=== PATIENT | female | born 1975 | race Caucasian/White ===

== ENCOUNTER 2017-08-06 11:15 | Emergency (ER) | payer MEDICARE, SELFPAY ==
[2017-08-06 11:17] VITALS: BP 124/93; PULSE 104; RESP 20; TEMP 36.9; O2SAT 100; BMI 21.4
[2017-08-06 12:36] LABS: Bedside Glucose 410 mg/dL (70-110)
[2017-08-06 13:16] VITALS: BP 128/89; PULSE 98; RESP 14; O2SAT 100
--- NOTE | 2017-08-06 13:42 | RAD_ITS ---
STUDY: X-RAY - RIGHT HAND REASON FOR EXAM: Female, 41 years old. Possible infection. TECHNIQUE: 3 view(s) of the hand. COMPARISON: None. FINDINGS: Normal radiocarpal articulation. Normal distal radioulnar joint. Normal visualized carpal bones. Normal carpal articulations Normal carpometacarpal articulation of the thumb. Normal second through fifth carpometacarpal joints. Normal metacarpi. Normal metacarpophalangeal joint of the thumb. Normal interphalangeal joint of the thumb. Normal proximal and distal phalanges of the thumb. Normal metacarpophalangeal joints of the second through fifth fingers. Normal proximal and distal interphalangeal joints of the second through fifth fingers. Normal phalanges of the second through fifth fingers. Dorsal soft tissue swelling. Tiny radiopacity is seen in the soft tissues overlying the ulnar aspect of the proximal portion of the fifth metacarpal. RAD/Hand Min 3 Views IMPRESSION: Soft tissue swelling. Questionable tiny radiopaque foreign bodies in the soft tissues overlying the ulnar aspect of the base of the fifth metacarpal. Electronically Signed: Brice Mann MD at 14:12 EST Tel [phone], Service support ,
[2017-08-06 14:09] LABS: Absolute Lymphocyte Count 2.19 X10^3/ul (0.83-4.51); Absolute Neutrophil Count 9.8 X10^3/uL (2.0-7.7); Basophil# 0.03 X10^3/uL; Basophil% 0.2 % (0-1); Eosinophils% 0.7 % (0-5); Hematocrit 40.1 % (37-47); Hemoglobin 13.2 g/dl (12.0-15.0); Lymphocyte # 2.19 X10^3/ul (4.0); Lymphocyte % 16.3 % (19-41); Mean Corp Hgb Conc 32.9 g/gl (32-36); Mean Corpuscular Hgb 29.7 pg (27.0-32.0); Mean Corpuscular Volume 90.1 fL (81-99); Mean Platelet Vol. 9.6 fl (6.2-12.0); Monocyte% 9.7 % (0-10); Neutrophil % 72.8 % (47-70); POSITIVE COUNT NO; POSITIVE DIFFERENTIAL NO; POSITIVE MORPHOLOGY NO; Platelet Count 376 K/mm3 (150-450); RBC Distribution Width CV 13.5 % (11.6-14.6); Red Blood Count 4.45 M/mm3 (4.2-5.4); White Blood Count 13.5 K/mm3 (4.4-11.0)
[2017-08-06 14:17] LABS: Alcohol, Blood (Medical)-Serum < 3.0 mg/dL
[2017-08-06 14:20] LABS: Lactic Acid 1.9 mmol/L (0.4-2.0)
[2017-08-06 14:23] LABS: ALB/GLOB Ratio 0.6 RATIO (0.9-2.4); AST(SGOT) 19 U/L (15-37); Alanine Aminotransfer ALT/SGPT 25 U/L (12-78); Albumin, Serum 3.2 g/dL (3.4-5.0); Alkaline Phosphatase 152 U/L (45-117); Anion Gap 10 (5-15); BUN 7 mg/dL (7-18); BUN/Creat Ratio 9.9 RATIO (10-20); Calcium,Total 8.9 mg/dL (8.5-10.1); Chloride 94 mmol/L (98-107); EST Glomerular Filtration Rate 97 mL/min (>60); Est Glom Filt Rate - Afr Amer 118 mL/min (>60); Estimated Creatinine Clearance 76.74 ml/min; Glucose 377 mg/dL (70-110); Potassium 3.5 mmol/L (3.5-5.1); Protein, Total 8.2 g/dL (6.4-8.2); Prothrombin Time (Protime)PT. 12.6 SECONDS (11.7-14.9); Sodium Level 132 mmol/L (136-145)
--- NOTE | 2017-08-06 14:54 | NURSING ---
pt requested pain medication. pt offered medication that was no an opiod. she then began to scream and swear at me. she started to tare at her iv site and tell me to remove it. i explained to the patient that if we remover her iv she would not be able to receive pain medications, insulin, or her antibiotics. iv was removed and catheter was in tacked. was informed about pt behavior and hospital resource officer was notified about her behavior and concern for patient safety. connor sung rn
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
--- NOTE | 2017-08-06 15:24 | ED.RN ---
THIS NURSE ATTEMPTED TO GIVE PT HER D/C INSTRUCTIONS AND PRESCRIPTIONS. PT STATES FUCK YOU. BOYFRIEND SPOKE WITH THIS NURSE. BOYFRIEND GIVEN THE D/C PAPERWORK AND INSTRUCTION ABOUT THE ANTIBIOTICS. PT REFUSING TO SIGN THE AMA PAPERWORK.
--- NOTE | 2017-08-06 15:26 | ED.RN ---
PT REMOVED HER OWN IV
== END 2017-08-06 15:26 | disposition home or self-care (01) ==
PROVIDERS: Emergency Provider Emergency Medicine
DX: L03.113 Cellulitis of right upper limb (principal); E11.65 Type 2 diabetes mellitus with hyperglycemia; Z91.14 Patient's other noncompliance with medication regimen; R23.4 Changes in skin texture; J44.9 Chronic obstructive pulmonary disease, unspecified; F41.9 Anxiety disorder, unspecified; F43.10 Post-traumatic stress disorder, unspecified; F32.9 Major depressive disorder, single episode, unspecified; Z79.4 Long term (current) use of insulin; Z72.0 Tobacco use; M79.89 Other specified soft tissue disorders
CPT/HCPCS: 73130; 80053; 80320; 82009; 82962; 83605; 84484; 85025; 85610; 85730; 87040; 99283; J7050; A4216; G0480

== ENCOUNTER 2017-09-05 01:50 | Inpatient (IN) | payer MEDICARE, SELFPAY ==
[2017-09-05] VITALS (33 sets, daily range): BP systolic 85–135; BP diastolic 56–88; PULSE 73–110; RESP 14–25; TEMP 36.4–37.4; O2SAT 94–100; BMI 24.6; BMI 23.3
[2017-09-05 02:01] LABS: Bedside Glucose > 500 mg/dL (70-110)
--- NOTE | 2017-09-05 02:09 | EKG12_ITS ---
Test Reason : ALTERED MENTAL STATU Blood Pressure : / mmHG Vent. Rate : 098 BPM Atrial Rate : 098 BPM P-R Int : 178 ms QRS Dur : 088 ms QT Int : 352 ms P-R-T Axes : 061 039 036 degrees QTc Int : 449 ms Normal sinus rhythm Normal ECG Confirmed by ENA DILLARD, AMARI ([id number]), editor map JOSUE CRAMER ([id number]) on 09/06/2017 10:35:36 AM Referred By: VINH Confirmed By:AMARI SUTHERLAND MD
--- NOTE | 2017-09-05 02:09 | RAD_ITS ---
STUDY: X-RAY CHEST REASON FOR EXAM: Female, 41 years old. Altered mental status and hyperglycemia. TECHNIQUE: Single AP portable view of the chest. COMPARISON: 07/08/2017 FINDINGS: The lungs are clear and expanded. There is no demonstrated pleural abnormality. Normal size heart. Normal mediastinum and noemi. Normal visualized pulmonary arteries. Normal visualized aortic arch and descending thoracic aorta. Normal visualized thoracic spine. Normal visualized ribs, clavicles, and shoulders. There is no demonstrated abnormality of the visualized soft tissue structures of the upper abdomen. RAD/Chest 1 View (Portable) IMPRESSION: Normal x-ray examination of the chest. Electronically Signed: Zackary Aguilar MD at 4:01 EST Tel , Service support ,
[2017-09-05 02:14] LABS: Bacteria 0 SEEN /hpf (None Seen); Mucous, Urine 0 SEEN /hpf (<or=2+); Red Blood Cells-Urine 0 SEEN /hpf (0-5)
[2017-09-05 02:15] LABS: Color, Urine Straw (Yellow); Glucose, Dipstick 1000 mg/dl (Normal); Ketone-Dipstick Negative (Negative); Leukocyte Esterase-Dipstick 25 /ul (Negative); Nitrite-Dipstick Negative (Negative); Occult Blood-Urine 250 /ul (Negative); Protein-Dipstick Negative (Negative); Specific Gravity, Urine 1.005 (1.002-1.030); Urine Bilirubin Dipstick Negative (Negative); Urine Clarity Clear (Clear); Urine Urobilinogen Normal (Normal)
[2017-09-05 02:21] LABS: Squamous Epithelial Cells - UA 0-5 SEEN /hpf (5-10); Vista UDS pH Range 6; White Blood Cells 0-5 SEEN /hpf (0-5)
[2017-09-05] MEDS: 0.9% Normal Saline 1,000 ML 999 ML IV ×2 (02:25→03:07)
[2017-09-05 02:26] LABS: Amphetamine Urine VISTA POSITIVE (<1000 ng/mL); Barbiturate Urine VISTA NEGATIVE (< 200 ng/mL); Benzodiazepine Urine VISTA NEGATIVE (< 200 ng/mL); Cocaine Urine VISTA NEGATIVE (< 300 ng/mL); Ecstacy Urine VISTA NEGATIVE (< 500 ng/mL); Methadone Urine VISTA NEGATIVE (< 300 ng/mL); PCP Urine VISTA NEGATIVE (< 25 ng/mL); THC Urine VISTA NEGATIVE (< 50 ng/mL)
[2017-09-05 02:28] LABS: Internal QC Validated? YES +Cl - CLEAR BKGD; Pregnancy, Urine Negative Negative
[2017-09-05 02:30] LABS: Absolute Lymphocyte Count 0.91 X10^3/ul (0.83-4.51); Basophil# 0.01 X10^3/uL; Basophil% 0.2 % (0-1); Hematocrit 50.8 % (37-47); Hemoglobin 13.4 g/dl (12.0-15.0); Lymphocyte # 0.91 X10^3/ul (4.0); Lymphocyte % 13.8 % (19-41); Mean Corp Hgb Conc 26.4 g/gl (32-36); Mean Corpuscular Hgb 29.9 pg (27.0-32.0); Mean Corpuscular Volume 113.4 fL (81-99); Mean Platelet Vol. 10.1 fl (6.2-12.0); Monocyte# 0.65 X10^3/uL; Monocyte% 9.8 % (0-10); Neutrophil # 5.01 X10^3/uL (2.7-7.7); Neutrophil % 75.9 % (47-70); POSITIVE COUNT NO; POSITIVE DIFFERENTIAL NO; POSITIVE MORPHOLOGY NO; Platelet Count 317 K/mm3 (150-450); RBC Distribution Width CV 14.6 % (11.6-14.6); RBC Distribution Width SD 60.5 fl (35.1-43.9); Red Blood Count 4.48 M/mm3 (4.2-5.4); White Blood Count 6.6 K/mm3 (4.4-11.0)
[2017-09-05 02:36] LABS: Blood Gas Specimen Type VEN; O2 Delivery Device Room Air; Time Given 227; VBG BASE EXCESS -10 mmol/L (-1.0-3.5); VBG Bicarbonate 16 mmol/L (22-26); VBG Oxygen Content 17 mmol/L (23-33); VBG PO2 83 mmHg (25-40); VBG SO2 95 % (50-70); VBG pCO2 34.2 mmHg (41-51); VBG pH 7.28 (7.32-7.42)
[2017-09-05 02:57] LABS: Anion Gap 20 (5-15); BUN 14 mg/dL (7-18); BUN/Creat Ratio 8.7 RATIO (10-20); Calcium,Total 9.1 mg/dL (8.5-10.1); Chloride 78 mmol/L (98-107); Creatinine, Serum 1.61 mg/dL (0.55-1.02); EST Glomerular Filtration Rate 38 mL/min (>60); Est Glom Filt Rate - Afr Amer 45 mL/min (>60); Estimated Creatinine Clearance 36.74 ml/min; Glucose 1894 mg/dL (74-106); Potassium 5.2 mmol/L (3.5-5.1); Sodium Level 113 mmol/L (136-145)
--- NOTE | 2017-09-05 02:58 | ED.RN ---
LAB CALLS WITH CRITICAL RESULT, BLOOD GLUCOSE 1,894, SODIUM 113, DR. JUSTICE MADE AWARE.
--- NOTE | 2017-09-05 03:06 | ED.RN ---
LANEY CARVER (FRIEND) [phone], CALL FOR DISCHARGE.
--- NOTE | 2017-09-05 03:17 | ED.VISSUMM ---
- ER Visit Summary Date of Service: 09/05/17 Chief Complaint: Blood sugar History of Present Illness: The patient is a 41 F type I diabetic with a history of medication noncompliance and prior IV drug abuse. She states her blood sugars been high for the past 1-2 days. She ran out of her insulin a couple of days ago as she never establish a primary care physician. She does complain of some abdominal pain diffuse all over pain and nausea and vomiting. Physical Examination: Afebrile respiratory rate 25 vitals otherwise unremarkable Moist mucous membranes Heart regular rate and rhythm Patient does have a systolic murmur Lungs are clear Abdomen soft Alert Patient somewhat agitated yelling that she needs to pee and that she is in pain. Test Results: EKG shows normal sinus rhythm at a rate of 98. CBC unremarkable. Chemistry notable for creatinine of 1.61 glucose of 1894 bicarb of 15.0 sodium of 113 with a chloride of 78. And gap of 20. ABG shows pH 7.28. UA unremarkable. negative. Acetone negative. Urine drug screen positive for amphetamine. On my review of chest x-ray her cardiac silhouette does appear larger than on previous images however this may be related to portable technique. Bedside ultrasound did not show appreciable pericardial effusion although is limited. Emergency Department Course and Treatment: Patient was treated with aggressive IV fluids. Blood was obtained off and a radial arterial stick. She has severely elevation of her glucose with negative serum acetone however she is acidotic with an elevated anion gap so I do believe this is more diabetic ketoacidosis rather than hyperosmolar hyperglycemic state. She was treated with IV insulin infusion. Her corrected sodium with her glucose taken into account is about 140. Patient discussed with hospitalist will be admitted to the ICU. Treatment Plan: [] Disposition: Admit Impression: Diabetic ketoacidosis Acute kidney injury This note was generated with [employer] dictation software. It may contain incorrect words, spelling, and punctuation that were not noted in review of the chart prior to signing ED Disposition - Plan for ED Patient: Chief Complaint: Hyperglycemia Referrals: Care Physician,No Primary [Primary Care Provider] -
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
--- NOTE | 2017-09-05 03:53 | ECHOD_ITS ---
Reason For Study: hypertension Procedure This was a 2D Doppler, Color Flow transthoracic echocardiogram. Exam performed portable in ICU/CCU. Left Ventricle Normal LV size. Left ventricular systolic function is normal. The estimated ejection fraction is 60 %. Transmitral and pulmonary venous doppler flow suggestive of impaired relaxation of left ventricle. No regional wall motion abnormalities noted. Right Ventricle Normal RV size. Normal systolic function. Atria Normal left atrium. Normal right atrium. Mitral Valve Normal mitral valve. Tricuspid Valve Normal tricuspid valve. Mild (1+) tricuspid valve insufficiency. Pulmonary artery systolic pressure is 37 mmHg. Pulmonic Valve Normal pulmonic valve. Great Vessels Normal aortic root. The pulmonary artery is normal size. Normal inferior vena cava. Pericardium/Pleural No pericardial effusion. MMode/2D Measurements & Calculations LVIDd: 3.9 cm IVSd: 1.0 cm Ao root diam: 2.4 cm LVIDs: 2.4 cm LVPWd: 0.83 cm LA dimension: 2.6 cm RVDd: 2.9 cm FS: 38.1 % LAV(MOD-bp): 35.8 ml LA A4 area: 13.6 cm2 RA A4 area: 8.5 cm2 LAV(MOD-bp) Indexed: 22.8 ml/m2 LAV(MOD-sp2): 32.2 ml LAV(MOD-sp4): 37.0 ml Doppler Measurements & Calculations MV E max nithin: 88.8 cm/sec Lat Peak E' Nithin: 18.8 cm/sec Med Peak E' Nithin: 10.3 cm/sec MV A max nithin: 81.5 cm/sec E/E' lat: 4.7 E/E' med: 8.6 MV E/A: 1.1 Ao V2 max: 139.3 cm/sec LV V1 max: 117.7 cm/sec PA V2 max: 131.4 cm/sec Ao max P.8 mmHg LV V1 max P.5 mmHg TR max nithin: 283.4 cm/sec TR max P.2 mmHg Interpretation Summary Normal LV size. Left ventricular systolic function is normal. The estimated ejection fraction is 60 %. Transmitral and pulmonary venous doppler flow suggestive of impaired relaxation of left ventricle Mild (1+) tricuspid valve insufficiency. Ordering Physician: Elisa Devlin Referring Physician: FERCHO PCP Performed By: Chloe Sosa, DANIAL, RVT
--- NOTE | 2017-09-05 04:10 | NURSING ---
Patient drowsy at this time and unable to answer all of the admission questions.
[2017-09-05 04:16] LABS: Bedside Glucose > 500 mg/dL (70-110)
[2017-09-05] MEDS: 0.9% Normal Saline 1,000 ML 250 ML IV ×2 (04:27→09:00)
[2017-09-05 04:28] LABS: Absolute Lymphocyte Count 0.78 X10^3/ul (0.83-4.51); Absolute Neutrophil Count 6.4 X10^3/uL (2.0-7.7); Basophil# 0.02 X10^3/uL; Basophil% 0.3 % (0-1); Hematocrit 42.4 % (37-47); Hemoglobin 13.9 g/dl (12.0-15.0); Lymphocyte # 0.78 X10^3/ul (4.0); Lymphocyte % 10.3 % (19-41); Mean Corp Hgb Conc 32.8 g/gl (32-36); Mean Corpuscular Volume 91.6 fL (81-99); Mean Platelet Vol. 9.9 fl (6.2-12.0); Monocyte# 0.34 X10^3/uL; Monocyte% 4.5 % (0-10); Neutrophil # 6.43 X10^3/uL (2.7-7.7); Neutrophil % 84.5 % (47-70); Platelet Count 331 K/mm3 (150-450); RBC Distribution Width CV 14.1 % (11.6-14.6); RBC Distribution Width SD 46.7 fl (35.1-43.9); Red Blood Count 4.63 M/mm3 (4.2-5.4); White Blood Count 7.6 K/mm3 (4.4-11.0)
[2017-09-05 04:40] LABS: POSITIVE COUNT NO; POSITIVE DIFFERENTIAL NO; POSITIVE MORPHOLOGY NO
[2017-09-05 04:50] LABS: Anion Gap 13 (5-15); BUN 13 mg/dL (7-18); BUN/Creat Ratio 8.3 RATIO (10-20); Calcium,Total 9.2 mg/dL (8.5-10.1); Chloride 88 mmol/L (98-107); Creatinine, Serum 1.56 mg/dL (0.55-1.02); EST Glomerular Filtration Rate 39 mL/min (>60); Est Glom Filt Rate - Afr Amer 47 mL/min (>60); Estimated Creatinine Clearance 36.17 ml/min; Glucose 1409 mg/dL (74-106); Potassium 4.3 mmol/L (3.5-5.1); Sodium Level 124 mmol/L (136-145)
[2017-09-05] MEDS: 0.9% NaCl Peripheral Flush Adult/Peds IV ×3 (05:09→22:01)
[2017-09-05 05:37] LABS: Glucose 1186 mg/dL (74-106)
[2017-09-05 06:03] LABS: M R Staph aureus DNA By PCR POSITIVE (Negative); Probe Check PASS
[2017-09-05 06:06] LABS: Bedside Glucose > 500 mg/dL (70-110)
[2017-09-05 06:34] LABS: Glucose 966 mg/dL (74-106)
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
[2017-09-05 07:01] LABS: Bedside Glucose > 500 mg/dL (70-110)
[2017-09-05 07:06] LABS: Bedside Glucose > 500 mg/dL (70-110)
[2017-09-05 07:36] LABS: Glucose 818 mg/dL (74-106)
[2017-09-05 07:58] LABS: Hemoglobin A1c 13.2 % (4.2-6.3)
[2017-09-05 08:51] LABS: Anion Gap 10 (5-15); BUN 9 mg/dL (7-18); BUN/Creat Ratio 7.6 RATIO (10-20); Calcium,Total 9.8 mg/dL (8.5-10.1); Chloride 102 mmol/L (98-107); Creatinine, Serum 1.19 mg/dL (0.55-1.02); EST Glomerular Filtration Rate 53 mL/min (>60); Est Glom Filt Rate - Afr Amer 64 mL/min (>60); Estimated Creatinine Clearance 47.42 ml/min; Glucose 656 mg/dL (74-106); Potassium 3.7 mmol/L (3.5-5.1); Sodium Level 136 mmol/L (136-145)
--- NOTE | 2017-09-05 09:02 | PCM.HOSP.N ---
Hospitalist Note Seen and examined. Patient was admitted with DKA. She has multiple recurrent hospitalizations for similar problem with polysubstance use and dependence and noncompliance to insulin regimen. Patient is still on insulin drip. On DKA protocol. The patient had 2D echo today and shows normal EF 60% with normal LV size and systolic function. 1+ TR otherwise normal echo. The patient also has history of polysubstance use including crack cocaine, last use a few days ago. Continue present treatment.
[2017-09-05 09:06] LABS: Bedside Glucose > 500 mg/dL (70-110)
[2017-09-05 10:16] LABS: Bedside Glucose 483 mg/dL (70-110)
--- NOTE | 2017-09-05 10:25 | CASEMGMT ---
SW participated in ICU rounds this morning, pt too sleepy this morning to speak w/this SW. RN will let this SW know if pt wakes up enough to speak w/SW, otherwise SW will speak w/pt tomorrow. DIXIE Cantrell, ASSISTANT PROGRAM MANAGER
[2017-09-05 11:11] LABS: Bedside Glucose 398 mg/dL (70-110)
[2017-09-05 12:27] LABS: Anion Gap 7 (5-15); BUN 9 mg/dL (7-18); BUN/Creat Ratio 10.1 RATIO (10-20); Calcium,Total 8.6 mg/dL (8.5-10.1); Chloride 110 mmol/L (98-107); Creatinine, Serum 0.89 mg/dL (0.55-1.02); EST Glomerular Filtration Rate 74 mL/min (>60); Est Glom Filt Rate - Afr Amer 90 mL/min (>60); Estimated Creatinine Clearance 63.41 ml/min; Glucose 378 mg/dL (74-106); Potassium 3.7 mmol/L (3.5-5.1); Sodium Level 144 mmol/L (136-145)
[2017-09-05 13:01] LABS: Bedside Glucose 375 mg/dL (70-110)
[2017-09-05 13:01] LABS: Bedside Glucose 344 mg/dL (70-110)
[2017-09-05 14:11] LABS: Bedside Glucose 326 mg/dL (70-110)
[2017-09-05 15:01] LABS: Bedside Glucose 292 mg/dL (70-110)
--- NOTE | 2017-09-05 15:35 | CASEMGMT ---
Pt is awake, SW spoke w/pt briefly at the bedside. SW asked her how she has been, she states she is hoping David and Bassam come visit her. SW asked who David is, she states he is her boyfriend, or whatever, does not know what to call him. She is staying w/them at present, states has an apartment, but has not moved in yet. Pt states that once she moves into her apartment she is going to apply for Medicaid. Pt asked if she can use hospital assist. SW explained she can, but then she will be done for the year. Pt states understanding, is asking to use the hospital assist. SW explained that we will likely be able to use this for the one time this year. SW asked pt about her substance abuse. Pt states she has not been using, but then states used meth recently at a [employer]. She also states she got drunk recently. Pt fell asleep multiple times while speaking w/SW. SW explained will come back tomorrow to speak w/her further. SW will continue to follow. DIXIE Cantrell, OIL GAUGER
--- NOTE | 2017-09-05 17:19 | NURSING ---
education re chronic illness deferred till acute illness resolved and pt can stay awake
[2017-09-05 17:46] LABS: Bedside Glucose 349 mg/dL (70-110)
[2017-09-05 21:55] LABS: Bedside Glucose 343 mg/dL (70-110)
[2017-09-06] VITALS (13 sets, daily range): BP systolic 101–122; BP diastolic 61–87; PULSE 69–110; RESP 14–22; TEMP 36.6–37; O2SAT 96–100
[2017-09-06 05:01] LABS: Bedside Glucose 68 mg/dL (70-110)
[2017-09-06 05:01] LABS: Bedside Glucose 81 mg/dL (70-110)
[2017-09-06 05:36] LABS: Anion Gap 7 (5-15); BUN 15 mg/dL (7-18); BUN/Creat Ratio 19.5 RATIO (10-20); Calcium,Total 7.9 mg/dL (8.5-10.1); Chloride 106 mmol/L (98-107); Creatinine, Serum 0.77 mg/dL (0.55-1.02); EST Glomerular Filtration Rate 88 mL/min (>60); Est Glom Filt Rate - Afr Amer 106 mL/min (>60); Estimated Creatinine Clearance 73.29 ml/min; Glucose 117 mg/dL (74-106); Potassium 3.4 mmol/L (3.5-5.1); Sodium Level 136 mmol/L (136-145)
--- NOTE | 2017-09-06 07:05 | PN_ITS ---
Subjective: The patient was seen and examined at the bedside this morning. Events from the last 24 hours have been reviewed. The patient is currently afebrile, hemodynamically stable and maintaining appropriate oxygen saturations on room air. Potassium is low this morning at 3.4. A period of hypoglycemia was noted early this morning. The patient is currently on scheduled Levemir 30 units twice daily along with sliding scale insulin coverage. Objective: The patient's most recent lab work, culture data and imaging studies have all been personally reviewed. General: Alert, Cooperative, No apparent distress HEENT: Atraumatic, PERRLA, Normocephalic Oral: Moist Mucosa, No Gingival or Mucosal Lesions/ Ulcerations Neck: Supple, No Nodes, Trachea Midline Lungs: Normal air movement, No rhonchi, No wheeze, No rales Cardiovascular: Regular rate, Regular Rhythm, Normal S1, Normal S2, No murmurs Abdomen: Bowel Sounds Present, Soft, Non Tender Extremities: No clubbing, No cyanosis, No edema Skin: No rashes, No breakdown Musculoskeletal: No Tenderness to Palpation of Joints or Extremities Lymphatic: No Cervical, Supraclavicular, or Inguinal Adenopathy Neurological: Neuro grossly intact Psych/Mental Status: Normal Affect, Appropriate Vital Signs Temp Pulse Resp BP Pulse Ox 98.0 F 69 22 H 109/61 100 09/06/17 04:00 09/06/17 06:00 09/06/17 06:00 09/06/17 06:00 09/06/17 06:00 Oxygen Delivery Method Room Air Weight: 134 lb 4.184 oz Body Mass Index (BMI) 23.3 Finger Stick Blood Glucose 483 Intake and Output for Last 24 Hours 09/04/17 09/05/17 09/06/17 23:59 23:59 23:59 Intake Total 4568 / 4568 1060 / 1060 Output Total 4150 / 4150 300 / 300 Balance 418 / 418 760 / 760 Labs (Last 48 Hours) 09/05/17 09/05/17 09/05/17 04:01 04:05 04:05 WBC RBC Hgb Hct MCV MCH MCHC RDW RDW Differential Plt Count MPV Immature Gran % (Auto) Neut % (Auto) Lymph % (Auto) [place] % (Auto) Eos % (Auto) Baso % (Auto) Absolute Neuts (auto) Absolute Lymphs (auto) Total Counted Sodium 124 L Potassium 4.3 Chloride 88 L Carbon Dioxide 23.0 Anion Gap 13 BUN 13 Creatinine 1.56 H Estim Creat Clear Calc 36.17 Est GFR (MDRD) Af Amer 47 L Est GFR (MDRD) Non-Af 39 L BUN/Creatinine Ratio 8.3 L Glucose 1409 H* Hemoglobin A1c Calcium 9.2 Magnesium 2.0 MRSA (PCR) POC Glucose > 500 H* 09/05/17 09/05/17 09/05/17 04:05 04:05 04:10 WBC 7.6 RBC 4.63 Hgb 13.9 Hct 42.4 MCV 91.6 MCH 30.0 MCHC 32.8 RDW 14.1 RDW Differential 46.7 H Plt Count 331 MPV 9.9 Immature Gran % (Auto) 0.400 Neut % (Auto) 84.5 H Lymph % (Auto) 10.3 L [place] % (Auto) 4.5 Eos % (Auto) 0.0 Baso % (Auto) 0.3 Absolute Neuts (auto) 6.4 Absolute Lymphs (auto) 0.78 L Total Counted Not Reportable Sodium Potassium Chloride Carbon Dioxide Anion Gap BUN Creatinine Estim Creat Clear Calc Est GFR (MDRD) Af Amer Est GFR (MDRD) Non-Af BUN/Creatinine Ratio Glucose Hemoglobin A1c 13.2 H Calcium Magnesium MRSA (PCR) POSITIVE H POC Glucose 09/05/17 09/05/17 09/05/17 05:05 05:10 05:59 WBC RBC Hgb Hct MCV MCH MCHC RDW RDW Differential Plt Count MPV Immature Gran % (Auto) Neut % (Auto) Lymph % (Auto) [place] % (Auto) Eos % (Auto) Baso % (Auto) Absolute Neuts (auto) Absolute Lymphs (auto) Total Counted Sodium Potassium Chloride Carbon Dioxide Anion Gap BUN Creatinine Estim Creat Clear Calc Est GFR (MDRD) Af Amer Est GFR (MDRD) Non-Af BUN/Creatinine Ratio Glucose 1186 H* Hemoglobin A1c Calcium Magnesium MRSA (PCR) POC Glucose > 500 H* > 500 H* 09/05/17 09/05/17 09/05/17 06:00 07:00 07:00 WBC RBC Hgb Hct MCV MCH MCHC RDW RDW Differential Plt Count MPV Immature Gran % (Auto) Neut % (Auto) Lymph % (Auto) [place] % (Auto) Eos % (Auto) Baso % (Auto) Absolute Neuts (auto) Absolute Lymphs (auto) Total Counted Sodium Potassium Chloride Carbon Dioxide Anion Gap BUN Creatinine Estim Creat Clear Calc Est GFR (MDRD) Af Amer Est GFR (MDRD) Non-Af BUN/Creatinine Ratio Glucose 966 H* 818 H* Hemoglobin A1c Calcium Magnesium MRSA (PCR) POC Glucose > 500 H* 09/05/17 09/05/17 09/05/17 08:10 08:10 09:00 WBC RBC Hgb Hct MCV MCH MCHC RDW RDW Differential Plt Count MPV Immature Gran % (Auto) Neut % (Auto) Lymph % (Auto) [place] % (Auto) Eos % (Auto) Baso % (Auto) Absolute Neuts (auto) Absolute Lymphs (auto) Total Counted Sodium 136 Potassium 3.7 Chloride 102 Carbon Dioxide 24.0 Anion Gap 10 BUN 9 Creatinine 1.19 H Estim Creat Clear Calc 47.42 Est GFR (MDRD) Af Amer 64 Est GFR (MDRD) Non-Af 53 L BUN/Creatinine Ratio 7.6 L Glucose 656 H* Cancelled Hemoglobin A1c Calcium 9.8 Magnesium MRSA (PCR) POC Glucose > 500 H* 09/05/17 09/05/17 09/05/17 10:07 11:07 12:00 WBC RBC Hgb Hct MCV MCH MCHC RDW RDW Differential Plt Count MPV Immature Gran % (Auto) Neut % (Auto) Lymph % (Auto) [place] % (Auto) Eos % (Auto) Baso % (Auto) Absolute Neuts (auto) Absolute Lymphs (auto) Total Counted Sodium 144 Potassium 3.7 Chloride 110 H Carbon Dioxide 27.0 Anion Gap 7 BUN 9 Creatinine 0.89 Estim Creat Clear Calc 63.41 Est GFR (MDRD) Af Amer 90 Est GFR (MDRD) Non-Af 74 BUN/Creatinine Ratio 10.1 Glucose 378 H Hemoglobin A1c Calcium 8.6 Magnesium MRSA (PCR) POC Glucose 483 H* 398 H 09/05/17 09/05/17 09/05/17 12:03 12:57 13:55 WBC RBC Hgb Hct MCV MCH MCHC RDW RDW Differential Plt Count MPV Immature Gran % (Auto) Neut % (Auto) Lymph % (Auto) [place] % (Auto) Eos % (Auto) Baso % (Auto) Absolute Neuts (auto) Absolute Lymphs (auto) Total Counted Sodium Potassium Chloride Carbon Dioxide Anion Gap BUN Creatinine Estim Creat Clear Calc Est GFR (MDRD) Af Amer Est GFR (MDRD) Non-Af BUN/Creatinine Ratio Glucose Hemoglobin A1c Calcium Magnesium MRSA (PCR) POC Glucose 375 H 344 H 326 H 09/05/17 09/05/17 09/05/17 14:51 17:33 21:53 WBC RBC Hgb Hct MCV MCH MCHC RDW RDW Differential Plt Count MPV Immature Gran % (Auto) Neut % (Auto) Lymph % (Auto) [place] % (Auto) Eos % (Auto) Baso % (Auto) Absolute Neuts (auto) Absolute Lymphs (auto) Total Counted Sodium Potassium Chloride Carbon Dioxide Anion Gap BUN Creatinine Estim Creat Clear Calc Est GFR (MDRD) Af Amer Est GFR (MDRD) Non-Af BUN/Creatinine Ratio Glucose Hemoglobin A1c Calcium Magnesium MRSA (PCR) POC Glucose 292 H 349 H 343 H 09/06/17 09/06/17 09/06/17 04:33 04:50 04:54 WBC RBC Hgb Hct MCV MCH MCHC RDW RDW Differential Plt Count MPV Immature Gran % (Auto) Neut % (Auto) Lymph % (Auto) [place] % (Auto) Eos % (Auto) Baso % (Auto) Absolute Neuts (auto) Absolute Lymphs (auto) Total Counted Sodium 136 Potassium 3.4 L Chloride 106 Carbon Dioxide 23.0 Anion Gap 7 BUN 15 Creatinine 0.77 Estim Creat Clear Calc 73.29 Est GFR (MDRD) Af Amer 106 Est GFR (MDRD) Non-Af 88 BUN/Creatinine Ratio 19.5 Glucose 117 H Hemoglobin A1c Calcium 7.9 L Magnesium MRSA (PCR) POC Glucose 68 L 81 Clinical Impression(s) from Imaging Studies Chest X-Ray 09/05/17 02:09 IMPRESSION: Normal x-ray examination of the chest. Electronically Signed: Zackary Aguilar MD at 4:01 EST Tel , Service support , Assessment/Plan RECOMMENDATIONS: 1. Continue Levemir and sliding scale insulin coverage. Additional insulin titration per hospitalist. 2. Additional potassium repletion has been ordered. 3. Nutrition to provide diabetic education. 4. The patient undoubtedly needs to establish a relationship with a primary care provider and engineering leader on an outpatient basis. IMPRESSIONS: 1. Diabetic ketoacidosis secondary to outpatient noncompliance Resolved at this time. Continue management with Levemir and sliding scale insulin coverage. Will defer to hospitalist for additional insulin titration. The patient is in need of diabetic education and close outpatient follow-up. She also needs to establish a relationship with a primary care provider. 2. Acute kidney injury Resolved. Likely prerenal in etiology, as creatinine improved with volume expansion. 3. Hypokalemia Electrolyte repletion as ordered. 4. Metabolic encephalopathy Resolved. Secondary to underlying metabolic derangements in the setting of DKA. 5. History of polysubstance abuse/hypertension/anxiety/depression/chronic pain syndrome Complicates care, management, recovery and prognosis. Recommend physical therapy evaluation. This note was generated with [employer] dictation software. It may contain incorrect words, spelling, and punctuation that were not noted in checking the note before signing. DISPOSITION: The patient is medically stable for transfer out of the intensive care unit. Given the patient's lack of ongoing ICU needs, will sign off. Please call with any additional questions. Code Visit Inpatient E&M: 69482 Subs Hosp L2
[2017-09-06 07:32] LABS: Bedside Glucose 49 mg/dL (70-110)
[2017-09-06 07:32] LABS: Bedside Glucose 45 mg/dL (70-110)
[2017-09-06 08:21] LABS: Bedside Glucose 252 mg/dL (70-110)
--- NOTE | 2017-09-06 08:29 | PCM.PN.HOSP ---
Subjective: Seen and examined. DKA is resolved yesterday. Patient feels better. Vitals/I&O's: Vital Signs Temp Pulse Resp BP Pulse Ox 98.0 F 69 22 H 109/61 100 09/06/17 04:00 09/06/17 06:00 09/06/17 06:00 09/06/17 06:00 09/06/17 06:00 Oxygen Delivery Method Room Air Weight: 134 lb 4.184 oz Body Mass Index (BMI) 23.3 Finger Stick Blood Glucose 483 Intake and Output for Last 24 Hours 09/04/17 09/05/17 09/06/17 23:59 23:59 23:59 Intake Total 4568 / 4568 1060 / 1060 Output Total 4150 / 4150 300 / 300 Balance 418 / 418 760 / 760 General: Alert, Oriented x3, Cooperative HEENT: Atraumatic, PERRLA, EOMI, Normocephalic Neck: Supple, No JVD, Negative Carotid Bruits Lungs: Clear to auscultation, Normal air movement, No rhonchi, No rales Cardiovascular: Regular rate, Regular Rhythm, Normal S1, Normal S2, No murmurs Abdomen: Bowel Sounds Present, Soft, Non Tender, Non-Distended Extremities: No edema, Capillary Refill Less than 3 Seconds Skin: No rashes, No breakdown Musculoskeletal: No Tenderness to Palpation of Joints or Extremities Neurological: Cranial nerves II-XII grossly intact Psych/Mental Status: Normal Affect, Appropriate Laboratory Results 09/05/17 08:10: Sodium 136, Potassium 3.7, Chloride 102, Carbon Dioxide 24.0, Anion Gap 10, BUN 9, Creatinine 1.19 H, Estim Creat Clear Calc 47.42, Est GFR (MDRD) Af Amer 64, Est GFR (MDRD) Non-Af 53 L, BUN/Creatinine Ratio 7.6 L, Glucose 656 H*, Calcium 9.8 09/05/17 09:00: POC Glucose > 500 H* 09/05/17 10:07: POC Glucose 483 H* 09/05/17 11:07: POC Glucose 398 H 09/05/17 12:00: Sodium 144, Potassium 3.7, Chloride 110 H, Carbon Dioxide 27.0, Anion Gap 7, BUN 9, Creatinine 0.89, Estim Creat Clear Calc 63.41, Est GFR (MDRD) Af Amer 90, Est GFR (MDRD) Non-Af 74, BUN/Creatinine Ratio 10.1, Glucose 378 H, Calcium 8.6 09/05/17 12:03: POC Glucose 375 H 09/05/17 12:57: POC Glucose 344 H 09/05/17 13:55: POC Glucose 326 H 09/05/17 14:51: POC Glucose 292 H 09/05/17 17:33: POC Glucose 349 H 09/05/17 21:53: POC Glucose 343 H 09/06/17 04:13: POC Glucose 49 L 09/06/17 04:15: POC Glucose 45 L 09/06/17 04:33: POC Glucose 68 L 09/06/17 04:50: Sodium 136, Potassium 3.4 L, Chloride 106, Carbon Dioxide 23.0, Anion Gap 7, BUN 15, Creatinine 0.77, Estim Creat Clear Calc 73.29, Est GFR (MDRD) Af Amer 106, Est GFR (MDRD) Non-Af 88, BUN/Creatinine Ratio 19.5, Glucose 117 H, Calcium 7.9 L 09/06/17 04:54: POC Glucose 81 09/06/17 08:18: POC Glucose 252 H Current Medications Dextrose (D50w Syringe) 0 gm IV X1 PRN; Protocol PRN Reason: Hypoglycemia Glucagon () 1 mg IM .X1 PRN PRN Reason: Hypoglycemia Famotidine 20 mg/ Sodium (Chloride) 10 mls @ 300 mls/hr IV Q12 LYNDA Last Admin: 09/05/17 21:56 Dose: 300 mls/hr Sodium Chloride () 250 mls @ 15 mls/hr IV .[id number] PRN PRN Reason: SALINE FLUSH Potassium Chloride 40 meq/ (Dextrose) 520 mls @ 130 mls/hr IV X1 ONE Stop: 09/06/17 12:29 Insulin Aspart (Novolog Flexpen (Bk)) 0 units SC ACHS LYNDA PRN Reason: Protocol Last Admin: 09/05/17 21:57 Dose: 5 units Insulin Detemir (Levemir (Bkc)) 30 units SC BID LYNDA Last Admin: 09/05/17 21:57 Dose: 30 units Nutritional Formula (Lactose Free) (Glucerna Shake) 120 ml PO 4X/DAY LYNDA Ondansetron HCl (Zofran) 4 mg IV Q6H PRN PRN PRN Reason: NAUSEA/VOMITING Sodium Chloride () 5 - 30 ml IV UD PRN PRN Reason: SALINE FLUSH Last Admin: 09/05/17 22:01 Dose: 20 ml Assessment/Plan This is a 41 years old female patient presented to the emergency department because of elevated blood sugar as well as symptoms of abdominal pain, nausea and vomiting and she was found to have acute DKA, acute kidney injury, hyponatremia and metabolic encephalopathy. #1 acute DKA: Due to noncompliance with frequent admissions to the hospital for the same problem, patient ran out of insulin for the last couple of days. Her blood sugar is highly elevated at 1894. There is no evidence of hyperosmolar hyperglycemic state. PH was 7.28 and bicarbonate was 15 which is consistent with acute DKA although urine acetone level was negative. The patient is being admitted in ICU now getting transferred to regular floor. DKA is resolved. Patient on Accu-Cheks before meals and at bedtime and on the scheduled NovoLog insulin sliding scale coverage. Patient also on Levemir. #2 acute kidney injury/mild hyperkalemia: Secondary to above. Her kidney function has been fluctuating in the past, most recently was normal. Any UA, protein is normal. Admission creatinine is 1.61, she very dehydrated clinically. Serum potassium is 5.2. Replete potassium is 3.4 #3 hyponatremia: Probably due to pseudohyponatremia secondary to hyperglycemia. I could not calculate her corrected sodium because of highly elevated blood sugar at 1894. Sodium is normal #4 enlarged left heart border: This is an incidental finding on chest x-ray which revealed enlarged left heart border which is significantly different from x-ray on June,. Bedside ultrasound of the heart done by ER physician and he stated that there is no evidence of pericardial effusion. 2D echo was done and shows normal EF 60% with normal LV size and systolic function. 1+ TR otherwise normal echo #6 depression/PTSD/anxiety: Apparently, she is not on any medication for those problems. Will clarify with the patient when she is fully awake. #7 chronic pain syndrome: Tylenol as needed. Continue home medication one home medication list updated. #8 COPD: Clinically stable, pulse ox is normal on room air. #9 DVT prophylaxis: Subcu heparin. This note was generated with Dragon dictation software. Every effort was made to ensure accuracy, however computerized front loader residential driver mistakes may persist. Code Visit Inpatient E&M: 77355 Subs Hosp L3
--- NOTE | 2017-09-06 08:36 | PN_ITS ---
Subjective: Seen and examined. DKA is resolved yesterday. Patient feels better. Vitals/I&O's: Vital Signs Temp Pulse Resp BP Pulse Ox 98.0 F 69 22 H 109/61 100 09/06/17 04:00 09/06/17 06:00 09/06/17 06:00 09/06/17 06:00 09/06/17 06:00 Oxygen Delivery Method Room Air Weight: 134 lb 4.184 oz Body Mass Index (BMI) 23.3 Finger Stick Blood Glucose 483 Intake and Output for Last 24 Hours 09/04/17 09/05/17 09/06/17 23:59 23:59 23:59 Intake Total 4568 / 4568 1060 / 1060 Output Total 4150 / 4150 300 / 300 Balance 418 / 418 760 / 760 General: Alert, Oriented x3, Cooperative HEENT: Atraumatic, PERRLA, EOMI, Normocephalic Neck: Supple, No JVD, Negative Carotid Bruits Lungs: Clear to auscultation, Normal air movement, No rhonchi, No rales Cardiovascular: Regular rate, Regular Rhythm, Normal S1, Normal S2, No murmurs Abdomen: Bowel Sounds Present, Soft, Non Tender, Non-Distended Extremities: No edema, Capillary Refill Less than 3 Seconds Skin: No rashes, No breakdown Musculoskeletal: No Tenderness to Palpation of Joints or Extremities Neurological: Cranial nerves II-XII grossly intact Psych/Mental Status: Normal Affect, Appropriate Laboratory Results 09/05/17 08:10: Sodium 136, Potassium 3.7, Chloride 102, Carbon Dioxide 24.0, Anion Gap 10, BUN 9, Creatinine 1.19 H, Estim Creat Clear Calc 47.42, Est GFR ( MDRD) Af Amer 64, Est GFR (MDRD) Non-Af 53 L, BUN/Creatinine Ratio 7.6 L, Glucose 656 H*, Calcium 9.8 09/05/17 09:00: POC Glucose > 500 H* 09/05/17 10:07: POC Glucose 483 H* 09/05/17 11:07: POC Glucose 398 H 09/05/17 12:00: Sodium 144, Potassium 3.7, Chloride 110 H, Carbon Dioxide 27.0, Anion Gap 7, BUN 9, Creatinine 0.89, Estim Creat Clear Calc 63.41, Est GFR (MDRD ) Af Amer 90, Est GFR (MDRD) Non-Af 74, BUN/Creatinine Ratio 10.1, Glucose 378 H , Calcium 8.6 09/05/17 12:03: POC Glucose 375 H 09/05/17 12:57: POC Glucose 344 H 09/05/17 13:55: POC Glucose 326 H 09/05/17 14:51: POC Glucose 292 H 09/05/17 17:33: POC Glucose 349 H 09/05/17 21:53: POC Glucose 343 H 09/06/17 04:13: POC Glucose 49 L 09/06/17 04:15: POC Glucose 45 L 09/06/17 04:33: POC Glucose 68 L 09/06/17 04:50: Sodium 136, Potassium 3.4 L, Chloride 106, Carbon Dioxide 23.0, Anion Gap 7, BUN 15, Creatinine 0.77, Estim Creat Clear Calc 73.29, Est GFR ( MDRD) Af Amer 106, Est GFR (MDRD) Non-Af 88, BUN/Creatinine Ratio 19.5, Glucose 117 H, Calcium 7.9 L 09/06/17 04:54: POC Glucose 81 09/06/17 08:18: POC Glucose 252 H Current Medications Dextrose (D50w Syringe) 0 gm IV X1 PRN; Protocol PRN Reason: Hypoglycemia Glucagon () 1 mg IM .X1 PRN PRN Reason: Hypoglycemia Famotidine 20 mg/ Sodium (Chloride) 10 mls @ 300 mls/hr IV Q12 LYNDA Last Admin: 09/05/17 21:56 Dose: 300 mls/hr Sodium Chloride () 250 mls @ 15 mls/hr IV .[id number] PRN PRN Reason: SALINE FLUSH Potassium Chloride 40 meq/ (Dextrose) 520 mls @ 130 mls/hr IV X1 ONE Stop: 09/06/17 12:29 Insulin Aspart (Novolog Flexpen (Bk)) 0 units SC ACHS LYNDA PRN Reason: Protocol Last Admin: 09/05/17 21:57 Dose: 5 units Insulin Detemir (Levemir (Bkc)) 30 units SC BID LYNDA Last Admin: 09/05/17 21:57 Dose: 30 units Nutritional Formula (Lactose Free) (Glucerna Shake) 120 ml PO 4X/DAY LYNDA Ondansetron HCl (Zofran) 4 mg IV Q6H PRN PRN PRN Reason: NAUSEA/VOMITING Sodium Chloride () 5 - 30 ml IV UD PRN PRN Reason: SALINE FLUSH Last Admin: 09/05/17 22:01 Dose: 20 ml Assessment/Plan This is a 41 years old female patient presented to the emergency department because of elevated blood sugar as well as symptoms of abdominal pain, nausea and vomiting and she was found to have acute DKA, acute kidney injury, hyponatremia and metabolic encephalopathy. #1 acute DKA: Due to noncompliance with frequent admissions to the hospital for the same problem, patient ran out of insulin for the last couple of days. Her blood sugar is highly elevated at 1894. There is no evidence of hyperosmolar hyperglycemic state. PH was 7.28 and bicarbonate was 15 which is consistent with acute DKA although urine acetone level was negative. The patient is being admitted in ICU now getting transferred to regular floor. DKA is resolved. Patient on Accu-Cheks before meals and at bedtime and on the scheduled NovoLog insulin sliding scale coverage. Patient also on Levemir. #2 acute kidney injury/mild hyperkalemia: Secondary to above. Her kidney function has been fluctuating in the past, most recently was normal. Any UA, protein is normal. Admission creatinine is 1.61, she very dehydrated clinically. Serum potassium is 5.2. Replete potassium is 3.4 #3 hyponatremia: Probably due to pseudohyponatremia secondary to hyperglycemia. I could not calculate her corrected sodium because of highly elevated blood sugar at 1894. Sodium is normal #4 enlarged left heart border: This is an incidental finding on chest x-ray which revealed enlarged left heart border which is significantly different from x-ray on June,. Bedside ultrasound of the heart done by ER physician and he stated that there is no evidence of pericardial effusion. 2D echo was done and shows normal EF 60% with normal LV size and systolic function. 1+ TR otherwise normal echo #6 depression/PTSD/anxiety: Apparently, she is not on any medication for those problems. Will clarify with the patient when she is fully awake. #7 chronic pain syndrome: Tylenol as needed. Continue home medication one home medication list updated. #8 COPD: Clinically stable, pulse ox is normal on room air. #9 DVT prophylaxis: Subcu heparin. This note was generated with Dragon dictation software. Every effort was made to ensure accuracy, however computerized tower equipment installer mistakes may persist. Code Visit Inpatient E&M: 26816 Subs Hosp L3
[2017-09-06] MEDS: Glucerna Shake 120 ML LIQUID PO ×4 (11:14→21:29)
[2017-09-06 11:16] LABS: Bedside Glucose 426 mg/dL (70-110)
--- NOTE | 2017-09-06 14:55 | CASEMGMT ---
SW spoke w/physician, he was able to write pt's scripts today in order to be able to access the hospital assistance program for meds. SW tubed the scripts with the hospital assist form to the retail pharmacy and picked up pt's meds. SW gave meds to smelter charger to be kept until pt is ready for discharge. SW spoke w/pt in room, asked pt about applying for Medicaid, referrals for counseling and substance abuse, and if she has a place to stay when she leave. Pt is interested in completing a Medicaid application tomorrow, not today. Pt states once she gets her apartment will start that(counseling). Pt states she can stay w/David but does not know how to reach him, cannot remember his phone number. SW will come back to see pt again tomorrow, David's number is not listed anywhere in the chart. DIXIE Cantrell, RECREATION THERAPY DIRECTOR
[2017-09-06 15:56] LABS: Bedside Glucose 277 mg/dL (70-110)
[2017-09-06] MEDS: Famotidine 20 MG Tablet PO (21:30)
[2017-09-06 22:26] LABS: Bedside Glucose 212 mg/dL (70-110)
[2017-09-07 03:20] VITALS: BP 111/76; PULSE 75; RESP 16; TEMP 36.8; O2SAT 98
[2017-09-07 08:06] LABS: Bedside Glucose 298 mg/dL (70-110)
[2017-09-07 08:16] VITALS: BP 114/87; PULSE 83; RESP 16; TEMP 36.8; O2SAT 96
[2017-09-07] MEDS: Famotidine 20 MG Tablet PO (08:31)
[2017-09-07] MEDS: Glucerna Shake 120 ML LIQUID PO (08:34)
--- NOTE | 2017-09-07 09:26 | DCINST_ITS ---
You will use the following diet at home:: Calorie/Carbohydrate Controlled ( specify 1200, 1400, etc) - 1800 Mickey ADA diet Discharge Activity: May Not Drive Allergies/Adverse Reactions: Allergies citalopram hydrobromide [From Celexa] Allergy (Verified 09/05/17 02:32) Unknown codeine phosphate [From Tylenol-Codeine #3] Allergy (Verified 09/05/17 02:32) Unknown duloxetine HCl [From Cymbalta] Allergy (Verified 09/05/17 02:32) Unknown fluvastatin Allergy (Verified 09/05/17 02:32) Unknown Penicillins Allergy (Verified 09/05/17 02:32) Pt was young and does not remember reaction propoxyphene napsylate [From Darvocet-N 100] Allergy (Verified 09/05/17 02:32) Unknown latex Adverse Reaction (Verified 09/05/17 02:32) Swelling Medications to take at Discharge Insulin Aspart [Novolog Vial] 12 unit SQ TID #7 vial 09/06/17 Insulin Glargine,Hum.rec.anlog [Lantus] 30 unit SQ QHS #3 vial 09/06/17 [place], Insulin Disposable [Novofine Autocover 30G Needle] 1 ea MISCELL. UD #1 box 09/06/17 Ibuprofen [Motrin] 400 mg PO TID PRN PRN #20 tab 09/07/17 Insulin Aspart [Novolog Flexpen] See Protocol SC ACHS flexpen 09/07/17 The following prescriptions were given: Insulin Glargine,Hum.rec.anlog [Lantus] 30 unit SQ QHS #3 vial [place], Insulin Disposable [Novofine Autocover 30G Needle] 1 ea MISCELL. UD #1 box Insulin Aspart [Novolog Vial] 12 unit SQ TID #7 vial Primary Care Physician: Care Physician,No Primary [Primary Care Provider] - Please follow up with your Primary Care Physician in: in 1-2 weeks Please Follow Up With: Domitila Stapleton NP-C When: in 1-2 weeks
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
--- NOTE | 2017-09-07 11:28 | PCA ---
Addendum entered by Primitivo Tamayo 09/07/17 11:40: TC received from David Genaro to this secretary receptionist. David stated he cannot get a hold of anyone to come pick pt up. He stated his address is [address] [place] [address], and to have pt transported there. This secretary receptionist informed him she will set up transport through a taxi service that has a voucher with hospital. He thanked this secretary receptionist. Transport set back up through [employer] for 30 minutes. Original Note: Addendum entered by Primitivo Tamayo 09/07/17 11:36: Pt got a hold of David Lam who stated he will have a friend come pick pt up in 30-60 minutes. This secretary receptionist called [facility] to put transport on hold. Original Note: Call placed to [employer] regarding pt transfer to [address] [place] [address]; by hospital voucher. Set up transport time for 30 minutes.
--- NOTE | 2017-09-07 11:48 | CASEMGMT ---
SW spoke w/pt in room, completed a Medicaid yvon w/pt, faxed it to [facility]. SW spoke w/pt regarding where she is going today, she states there are two houses on [facility] where she can go, but does not have her friend David's number. Pt visibly upset, states she may kill herself if this continues. SW asked pt very clearly if she is suicidal now, she states no. SW asked again, pt denies being suicidal. SW spoke w/pt about her current situation and how this is impacting her. SW encouraged pt to apply for [email or web address] housing, to possibly get her own place and away from the people whom she associates. Pt states there is a year wait. SW still encouraged pt as it may be helpful, even if it takes a year. SW did give pt information on [facility] and encouraged her to follow up. She states she had a bad experience there, SW encouraged her to try again, as it's been some time since she has been there and she may likely have a better experience. She also has been to [facility] and has their number. power plant supervisor okayed a taxi for pt, pt states can take taxi there. Pt has her medications from yesterday, now stating does not have a meter. Physician wrote script for meter and strips, SW gave to pt, explained through her Medicare it should be covered at 80%, and [facility] and [facility] usually have the least expensive meters. Pt has no shoes or coat, does not know where they are. SW able to get shoes and coat for pt. I[place] Primitivo found pt's friend's number in the chart, pt called her friend and he is now picking up pt. No further needs are anticipated at this time. DIXIE Cantrell, HVAC RESIDENTIAL SERVICE TECHNICIAN
== END 2017-09-07 12:09 | disposition home or self-care (01) | DRG 637 ==
LOC: ED 02:47 → ICU 03:25 → MS3 09-06 14:12
PROVIDERS: Internal Medicine Critical Care Medicine; Admitting Provider Hospitalist; Emergency Provider Emergency Medicine; Visit Provider Internal Medicine
DX: E10.10 Type 1 diabetes mellitus with ketoacidosis without coma (principal); G93.41 Metabolic encephalopathy; N17.9 Acute kidney failure, unspecified; Z79.4 Long term (current) use of insulin; F17.200 Nicotine dependence, unspecified, uncomplicated; E87.5 Hyperkalemia; E87.6 Hypokalemia; I10 Essential (primary) hypertension; F41.0 Panic disorder [episodic paroxysmal anxiety]; M81.8 Other osteoporosis without current pathological fracture; G89.4 Chronic pain syndrome; F43.10 Post-traumatic stress disorder, unspecified; F32.9 Major depressive disorder, single episode, unspecified; J43.9 Emphysema, unspecified; E86.0 Dehydration; Z91.14 Patient's other noncompliance with medication regimen
CPT/HCPCS: 36415; 71045; 80048; 80307; 81001; 81025; 82009; 82803; 82947; 82962; 83036; 83735; 85025; 87641; 93005; 93306; 97162; 97166; 99285; J7030; A4216; J3490

== ENCOUNTER 2022-01-23 18:35 | Emergency (ER) | payer MEDICARE, SELFPAY ==
[2022-01-23 18:35] VITALS: RESP 16
[2022-01-23 18:36] VITALS: BP 161/98; PULSE 136; RESP 18; TEMP 36.3; O2SAT 94; BMI 26.6
[2022-01-23 19:35] VITALS: RESP 16
[2022-01-23 19:47] LABS: Internal QC Validated? YES +Cl - CLEAR BKGD; Pregnancy, Serum, hCG Quali. NEGATIVE Negative
[2022-01-23 19:49] LABS: Amphetamine Urine VISTA NEGATIVE (<1000 ng/mL); Barbiturate Urine VISTA NEGATIVE (< 200 ng/mL); Benzodiazepine Urine VISTA NEGATIVE (< 200 ng/mL); Cocaine Urine VISTA NEGATIVE (< 300 ng/mL); Ecstacy Urine VISTA NEGATIVE (< 500 ng/mL); Methadone Urine VISTA NEGATIVE (< 300 ng/mL); PCP Urine VISTA NEGATIVE (< 25 ng/mL); THC Urine VISTA POSITIVE (< 50 ng/mL); Vista UDS pH Range 7
[2022-01-23 19:50] LABS: Anion Gap 6 (5-15); BUN 10 mg/dL (7-18); BUN/Creat Ratio 9.7 RATIO (10-20); Calcium,Total 9.2 mg/dL (8.5-10.1); Chloride 103 mmol/L (98-107); Creatinine, Serum 1.03 mg/dL (0.55-1.02); EST Glomerular Filtration Rate 62 mL/min (>60); Est Glom Filt Rate - Afr Amer 75 mL/min (>60); Estimated Creatinine Clearance 54.55 ml/min; Glucose 341 mg/dL (74-106); Potassium 4.1 mmol/L (3.5-5.1); Sodium Level 135 mmol/L (136-145)
[2022-01-23 19:58] LABS: Absolute Lymphocyte Count 2.51 X10^3/uL (0.83-4.51); Absolute Neutrophil Count 5.3 X10^3/uL (2.0-7.7); Basophil# 0.05 X10^3/uL; Basophil% 0.6 % (0-1); Eosinophil# 0.07 X10^3/uL; Eosinophils% 0.8 % (0-5); Hematocrit 43.1 % (37-47); Hemoglobin 14.4 g/dL (12.0-15.0); Lymphocyte # 2.51 X10^3/ul (0.83-4.51); Lymphocyte % 28.1 % (19-41); Mean Corp Hgb Conc 33.4 g/dL (32-36); Mean Corpuscular Volume 95.8 fL (81-99); Mean Platelet Vol. 9.5 fl (6.2-12.0); Monocyte% 11.2 % (0-10); NRBC Flagged by Analyzer 0 % (0-5); Neutrophil # 5.26 X10^3/uL (2.7-7.7); Neutrophil % 58.9 % (47-70); Platelet Count 299 K/mm3 (150-450); RBC Distribution Width CV 13.1 % (11.6-14.6); RBC Distribution Width SD 46.5 fl (35.1-43.9); White Blood Count 8.9 K/mm3 (4.4-11.0)
[2022-01-23 20:39] LABS: Alcohol, Blood (Medical)-Serum < 3.0 mg/dL
--- NOTE | 2022-01-23 21:05 | CM.ED ---
Social Work Note Pt to be assessed by Crisis. SW placed a call to [facility] and updated staff that Crisis will need to see pt. SW faxed available clinicals to Crisis. Plan: Crisis to evaluate Staci Khan DAYTIME BABYSITTER, WOOD PILER
[2022-01-23] MEDS: Insulin NPH Human 100 UNITS/ML PEN 18 UNITS SC (21:25)
[2022-01-23] MEDS: Gabapentin 300 MG Capsule PO (21:25)
[2022-01-23] MEDS: carBAMazepine 200 MG Tablet 250 MG PO (21:26)
[2022-01-23] MEDS: ChlorproMAZINE 25 MG Tablet 50 MG PO (21:26)
[2022-01-23 21:35] LABS: Bedside Glucose 297 mg/dL (74-106)
--- NOTE | 2022-01-23 21:43 | ED.RN ---
crisis is here to see patient at this time
[2022-01-23 22:00] VITALS: RESP 16
--- NOTE | 2022-01-23 22:00 | EDS_ITS ---
HPI HPI - Psych History of Present Illness Chief Complaint: Mental Health Narrative Narrative: 46-year-old female with history of PTSD, panic disorder, anxiety, OCD presenting for evaluation. She states she just had a half-way and she is not feeling safe at home. She feels like is not taking care of her self. She reports hearing voices that are telling her to end it all. She has not tried to hurt herself or others. She states she is not doing any drugs currently. She has had some alcohol that she admits to but states she has not had a lot of this. No fevers, chills. No chest pain or shortness of breath. [facility] Medical History COPD (chronic obstructive pulmonary disease) Diabetes Home Medications pen needle, diabetic, safety 30 gauge x 1/3 ##1 09/06/17 [Rx Last Taken Unknown] carbamazepine 200 mg tablet 250 mg PO QHS 01/23/22 [History Last Taken Unknown] chlorpromazine 50 mg tablet 50 mg PO BID 01/23/22 [History Last Taken Unknown] gabapentin 300 mg tablet 300 mg PO BID 01/23/22 [History Last Taken Unknown] insulin NPH isoph U-100 human 100 unit/mL (3 mL) subcutaneous pen (Novolin N Flexpen) 18 unit subcut BID 01/23/22 [History Last Taken Unknown] insulin regular human 100 unit/mL (3 mL) subcutaneous pen (Novolin R Flexpen) 5 unit subcut TID 01/23/22 [History Last Taken Unknown] Allergy/AdvReac Type Severity Reaction Status Date / Time citalopram hydrobromide Allergy Unknown Verified 01/23/22 18:47 [From Celexa] codeine phosphate Allergy Unknown Verified 01/23/22 18:47 [From Tylenol-Codeine #3] duloxetine HCl Allergy Unknown Verified 01/23/22 18:47 [From Cymbalta] fluvastatin Allergy Unknown Verified 01/23/22 18:47 Penicillins Allergy Pt was Verified 01/23/22 18:47 young and does not remember reaction propoxyphene napsylate Allergy Unknown Verified 01/23/22 18:47 [From Darvocet-N 100] latex AdvReac Swelling Verified 01/23/22 18:47 Social History Smoking Status: Current every day smoker tobacco type: cigarettes ROS ROS ED Constitutional Constitutional ED: Denies chills or fever(s) Eyes Eyes: Denies change in vision or diplopia ENT ENT ED: Denies rhinorrhea or sore throat Cardiovascular Cardiovascular: Denies chest pain or palpitations Respiratory/Chest Respiratory/Chest: Denies cough or dyspnea Gastrointestinal Gastrointestinal: Denies abdominal pain or constipation Genitourinary Genitourinary ED: Denies dysuria or hematuria Musculoskeletal Musculoskeletal: Denies arthralgias Integumentary Denies abscess or Abrasions Neurologic Neurologic: Denies headache(s) or paresthesias Psychiatric Psychiatric: Reports anxiety, depression and other Details: Auditory hallucination ; Denies suicidal ideation or suicidal thoughts Endocrine Endocrinology: Denies polydipsia or polyphagia EXAM Physical Exam Const Vital Signs: 01/23/22 18:36 01/23/22 18:35 01/23/22 19:35 Temperature 97.3 F L Temperature Source Temporal Pulse Rate 136 H Respiratory Rate 18 16 16 Blood Pressure 161/98 H Blood Pressure Mean 119 Pulse Ox 94 Oxygen Delivery Method Room Air 01/23/22 22:00 Temperature Temperature Source Pulse Rate Respiratory Rate 16 Blood Pressure Blood Pressure Mean Pulse Ox Oxygen Delivery Method Positive obese and unkempt General Appearance ED: unkempt and NAD Nutritional Appearance: obese HEENT Reports moist mucous membranes Eyes PERRL and EOMs intact bilaterally Neck no lymphadenopathy Resp normal respiratory effort Auscultation: Negative for rales, rhonchi or wheezes GI non-tender Neuro oriented x3 and CN's II-XII intact bilaterally Psych Appearance: unkempt and disheveled Attitude: bizarre and agitated Activity / Motor Behavior: fidgetting Speech: rapid Thought Process: disorganized and tangential Thought Content: No suicidality, No homicidality and hallucination(s) Positive for auditory Insight: limited Judgement: limited MDM MDM MDM Narrative Medical decision making narrative: 46-year-old female presenting with anxiety. She feels she cannot care for self. She is also having auditory hallucinations and hearing voices that are telling her to end it all. She not specifically homicidal or suicidal however. Screening lab work is obtained and her CBC is within normal limits. BMP shows an elevated glucose of 341 without an anion gap. Electrolytes are normal. Urine drug screen positive for cannabinoids. EtOH negative. Serum negative. Patient was seen by crisis and it is felt that she would benefit from inpatient treatment. The patient is actually amenable to this. She feels unsafe at home. Crisis is currently working on placement. Impression: 1. Auditory hallucinations 2. Anxiety 3. Hyperglycemia Lab Data Attestation: I reviewed the patient's lab results. Labs: Laboratory Results - last 24 hr 01/23/22 01/23/22 01/23/22 18:55 19:30 19:30 WBC RBC Hgb Hct MCV MCH MCHC RDW Std Deviation RDW Coeff of Jony Plt Count MPV Immature Gran % (Auto) Neut % (Auto) Lymph % (Auto) Archer % (Auto) Eos % (Auto) Baso % (Auto) Absolute Neuts (auto) Absolute Lymphs (auto) Nucleated RBC % Sodium 135 L Potassium 4.1 Chloride 103 Carbon Dioxide 26.0 Anion Gap 6 BUN 10 Creatinine 1.03 H Estim Creat Clear Calc 54.55 Est GFR (MDRD) Af Amer 75 Est GFR (MDRD) Non-Af 62 BUN/Creatinine Ratio 9.7 L Glucose 341 H Calcium 9.2 Serum , Qual NEGATIVE Urine Opiates Screen NEGATIVE Urine Methadone Screen NEGATIVE Ur Barbiturates Screen NEGATIVE Ur Phencyclidine Scrn NEGATIVE Ur Amphetamines Screen NEGATIVE MDMA (Ecstasy) Screen NEGATIVE U Benzodiazepines Scrn NEGATIVE Urine Cocaine Screen NEGATIVE U Cannabinoids Screen POSITIVE H Ur Drug Screen Comment Ethyl Alcohol POC Glucose 01/23/22 01/23/22 01/23/22 19:43 19:43 21:25 WBC 8.9 RBC 4.50 Hgb 14.4 Hct 43.1 MCV 95.8 MCH 32.0 MCHC 33.4 RDW Std Deviation 46.5 H RDW Coeff of Jony 13.1 Plt Count 299 MPV 9.5 Immature Gran % (Auto) 0.400 Neut % (Auto) 58.9 Lymph % (Auto) 28.1 Archer % (Auto) 11.2 H Eos % (Auto) 0.8 Baso % (Auto) 0.6 Absolute Neuts (auto) 5.3 Absolute Lymphs (auto) 2.51 Nucleated RBC % 0 Sodium Potassium Chloride Carbon Dioxide Anion Gap BUN Creatinine Estim Creat Clear Calc Est GFR (MDRD) Af Amer Est GFR (MDRD) Non-Af BUN/Creatinine Ratio Glucose Calcium Serum , Qual Urine Opiates Screen Urine Methadone Screen Ur Barbiturates Screen Ur Phencyclidine Scrn Ur Amphetamines Screen MDMA (Ecstasy) Screen U Benzodiazepines Scrn Urine Cocaine Screen U Cannabinoids Screen Ur Drug Screen Comment Ethyl Alcohol < 3.0 POC Glucose 297 H Discharge Plan Triage Chief Complaint: Mental Health ED Provider: James Rodgers Dx/Rx/DC Orders Prescriptions: No Action (DME) pen needle, diabetic, safety 1 EACH needle 1 ea MISCELL. UD Qty: 1 0RF Novolin N Flexpen 100 unit/mL (3 mL) Insulin Pen 18 unit SUBCUT BID Novolin R Flexpen 100 unit/mL (3 mL) Insulin Pen 5 unit SUBCUT TID Rx Instructions: AND ADDITIONAL SLIDING SCALE carbamazepine 200 mg Tablet 250 mg PO QHS chlorpromazine 50 mg Tablet 50 mg PO BID gabapentin 300 mg Tablet 300 mg PO BID Primary Care Provider: Care Physician,No Primary Referrals: Care Physician,No Primary [Primary Care Provider] -
[2022-01-24] VITALS (7 sets, daily range): BP systolic 115–128; BP diastolic 74–87; PULSE 86–88; RESP 15–18; TEMP 36.8; O2SAT 98–99
--- NOTE | 2022-01-24 04:55 | ED.RN ---
PATIENT IS ACCEPTED AT DR[facility] JUNIOR YANES TO THE 1500 UNIT. N.N IS [phone]. THEY CANT ARRIVE UNTIL AFTER 8AM. CALLED FOR A RIDE THAT IS SET UP AT 0730AM.
--- NOTE | 2022-01-24 07:51 | ED.RN ---
Report called to Irene.
--- NOTE | 2022-01-24 08:06 | NURSING ---
CALLED [facility], ETA IS ANOTHER 15 TO 20 MIN
== END 2022-01-24 09:10 ==
LOC: ED 19:45
PROVIDERS: Emergency Provider Student in an Organized Health Care Education/Training Program; Visit Provider Student in an Organized Health Care Education/Training Program
DX: R44.0 Auditory hallucinations (principal); J44.9 Chronic obstructive pulmonary disease, unspecified; E11.65 Type 2 diabetes mellitus with hyperglycemia; Z79.4 Long term (current) use of insulin; F17.210 Nicotine dependence, cigarettes, uncomplicated; F41.9 Anxiety disorder, unspecified; Z79.899 Other long term (current) drug therapy; F42.9 Obsessive-compulsive disorder, unspecified; F43.10 Post-traumatic stress disorder, unspecified; E66.9 Obesity, unspecified; Z68.26 Body mass index [BMI] 26.0-26.9, adult
CPT/HCPCS: 80048; 80307; 82077; 82962; 84703; 85025; 87811; 99285

== ENCOUNTER → 2022-12-24 | Outpatient (CLI) | payer MEDICARE, SELFPAY ==
--- NOTE | 2022-12-24 12:28 | EKG12_ITS ---
Test Reason : PRE-OP Blood Pressure : / mmHG Vent. Rate : 097 BPM Atrial Rate : 097 BPM P-R Int : 146 ms QRS Dur : 078 ms QT Int : 362 ms P-R-T Axes : 077 057 055 degrees QTc Int : 459 ms Normal sinus rhythm Normal ECG Confirmed by ARTURO DILLARD, NENA ([id number]), photography editor EARL MUIR ([id number]) on 12/25/2022 8:54:10 AM Referred By: Enrique Knight Confirmed By:NENA MORRIS MD
--- NOTE | 2022-12-24 12:30 | RAD_ITS ---
STUDY: X-RAY CHEST REASON FOR EXAM: Female, 47 years old. Preop for pelvic surgery TECHNIQUE: PA and lateral views of the chest. COMPARISON: 09/05/2017 FINDINGS: The lungs are clear and expanded. There is no demonstrated pleural abnormality. Normal size heart. Normal mediastinum and noemi. Normal visualized pulmonary arteries. Normal visualized aortic arch and descending thoracic aorta. Normal visualized thoracic spine. Normal visualized ribs, clavicles, and shoulders. There is no demonstrated abnormality of the visualized soft tissue structures of the upper abdomen. RAD/Chest PA and Lateral IMPRESSION: No acute pulmonary process Electronically Signed: Elio Trimble MD at 8:39 EDT ,
== END | disposition home or self-care (01) ==
LOC: PAT 02-05 16:19
PROVIDERS: PCP Student in an Organized Health Care Education/Training Program; Referring Provider Orthopaedic Surgery; Visit Provider Orthopaedic Surgery
DX: Z01.810 Encounter for preprocedural cardiovascular examination (principal); Z01.811 Encounter for preprocedural respiratory examination
CPT/HCPCS: 71046; 93005

== ENCOUNTER 2023-01-17 13:50 | Day surgery (SDC) | payer MEDICARE, SELFPAY ==
[2023-01-30 13:32] LABS: Absolute Lymphocyte Count 2.98 X10^3/uL (0.83-4.51); Absolute Neutrophil Count 8.8 X10^3/uL (2.0-7.7); Basophil# 0.08 X10^3/uL; Basophil% 0.6 % (0-1); Eosinophil# 0.14 X10^3/uL; Eosinophils% 1.1 % (0-5); Hematocrit 40.6 % (37-47); Hemoglobin 13.5 g/dL (12.0-15.0); Lymphocyte # 2.98 X10^3/ul (0.83-4.51); Lymphocyte % 22.8 % (19-41); Mean Corp Hgb Conc 33.3 g/dL (32-36); Mean Corpuscular Hgb 32.6 pg (27.0-32.0); Mean Corpuscular Volume 98.1 fL (81-99); Mean Platelet Vol. 9.3 fl (6.2-12.0); Monocyte# 1.06 X10^3/uL; Monocyte% 8.1 % (0-10); NRBC Flagged by Analyzer 0 % (0-5); Neutrophil # 8.75 X10^3/uL (2.7-7.7); Neutrophil % 66.8 % (47-70); Platelet Count 415 K/mm3 (150-450); RBC Distribution Width CV 13.3 % (11.6-14.6); RBC Distribution Width SD 47.6 fl (35.1-43.9); Red Blood Count 4.14 M/mm3 (4.2-5.4); White Blood Count 13.1 K/mm3 (4.4-11.0)
[2023-01-30 13:44] LABS: Prothrombin Time (Protime)PT. 13.1 SECONDS (11.7-14.9)
[2023-01-30 13:45] LABS: Partial Thromboplast Time 26.1 Seconds (24.1-36.2)
[2023-01-30 13:49] LABS: Anion Gap 5 (5-15); BUN 16 mg/dL (7-18); BUN/Creat Ratio 19.7 RATIO (10-20); Calcium,Total 8.8 mg/dL (8.5-10.1); Chloride 104 mmol/L (98-107); Creatinine, Serum 0.81 mg/dL (0.55-1.02); EST Glomerular Filtration Rate 81 mL/min (>60); Est Glom Filt Rate - Afr Amer 98 mL/min (>60); Glucose 188 mg/dL (74-106); Sodium Level 135 mmol/L (136-145)
[2023-01-30 13:50] LABS: Hemoglobin A1c 8.7 % (3.8-5.6)
== END 2023-01-17 23:59 | disposition home or self-care (01) ==
LOC: PAT 02-15 13:50
PROVIDERS: Anesthesiology; PCP Student in an Organized Health Care Education/Training Program; Referring Provider Orthopaedic Surgery; Visit Provider Orthopaedic Surgery
DX: Z01.812 Encounter for preprocedural laboratory examination (principal); Z01.818 Encounter for other preprocedural examination
CPT/HCPCS: 36415; 80048; 81025; 83036; 85025; 85610; 85730

== ENCOUNTER → 2023-01-29 | Outpatient (CLI) | payer MEDICARE, SELFPAY ==
--- NOTE | 2023-01-29 15:02 | RAD_ITS ---
STUDY: X-RAY CHEST REASON FOR EXAM: Female, 47 years old. Preoperative evaluation. TECHNIQUE: Frontal and lateral views of the chest. COMPARISON: Chest dated December 24, 2022. FINDINGS: The lungs are clear and expanded. There is no demonstrated pleural abnormality. Normal size heart. Normal mediastinum and noemi. Normal visualized pulmonary arteries. Normal visualized aortic arch and descending thoracic aorta. Normal visualized thoracic spine. Normal visualized ribs, clavicles, and shoulders. No abnormality of the visualized soft tissue structures of the upper abdomen. RAD/Chest PA and Lateral IMPRESSION: No interval change. Normal chest. Electronically Signed: Genaro Sanchez MD at 15:27 EDT ,
== END | disposition home or self-care (01) ==
LOC: RAD 15:01
PROVIDERS: PCP Student in an Organized Health Care Education/Training Program; Referring Provider Orthopaedic Surgery; Visit Provider Orthopaedic Surgery
DX: Z01.810 Encounter for preprocedural cardiovascular examination (principal)
CPT/HCPCS: 71046

== ENCOUNTER → 2023-04-06 | Outpatient (CLI) | payer MEDICARE, SELFPAY ==
[2023-04-06 11:42] LABS: Hemoglobin A1c 7.7 % (3.8-5.6)
[2023-04-07 08:07] LABS: Fructosamine 283 umol/L (0-285)
== END | disposition home or self-care (01) ==
LOC: LAB 10:37
PROVIDERS: PCP Student in an Organized Health Care Education/Training Program; Referring Provider Student in an Organized Health Care Education/Training Program; Visit Provider Student in an Organized Health Care Education/Training Program
DX: E11.69 Type 2 diabetes mellitus with other specified complication (principal)
CPT/HCPCS: 36415; 82985; 83036